=== PATIENT | male | born 1975 | race Caucasian/White ===

== ENCOUNTER 2017-06-20 18:20 | Observation (INO) ==
[2017-06-20] MEDS ORDERED: Ipratropium/Albuterol Neb 3 ML IH ONE (18:27)
[2017-06-20] MEDS ORDERED: predniSONE 20 MG TABLET PO ONE (18:27)
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
[2017-06-20 19:00] LABS: Basophils # 0.1 K/mcL (0.0-0.2); Basophils % 0.8 %; Eosinophils # 0.1 K/mcL (0.0-0.6); Eosinophils % 1.4 %; Hematocrit 43.6 % (37.5-50.1); Immature Granulocytes % 0.7 % (0-4); Lymphocytes # 2.5 K/mcL (0.6-4.6); Mean Corpuscular HGB Conc 34.4 g/dL (31.6-35.5); Mean Corpuscular Hemoglobin 32.3 pg (28.0-33.3); Mean Corpuscular Volume 93.8 fL (83.0-100.0); Monocytes # 0.7 K/mcL (0.0-1.3); Monocytes % 7.6 %; Platelet Count 213 K/mcL (140-400); Red Blood Count 4.65 M/mcL (4.19-5.50); Red Cell Distribution Width 12.5 % (11.5-14.5); Segmented Neutrophils % 63.5 %
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
[2017-06-20 19:06] LABS: INR 1.1
[2017-06-20 19:34] LABS: BUN/Creatinine Ratio 15 (6-26); Blood Urea Nitrogen 15 mg/dL (6-20); Calcium 9.3 mg/dL (8.6-10.3); Carbon Dioxide 25 mEq/L (23-29); Chloride 104 mEq/L (98-107); Glucose 141 mg/dL (70-105); Osmolality,Calculated 287 (280-300); Sodium 137 mEq/L (136-145); eGFR For African Americans > 60 (> 60); eGFR For Non-African Americans > 60 (> 60)
[2017-06-20] MEDS ORDERED: Acetaminophen 325 MG TABLET PO PRN (20:32)
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
[2017-06-20] MEDS: Ipratropium/Albuterol Neb 3 ML IH SCH (21:39)
[2017-06-20] MEDS: cefTRIAXone 1,000 MG in Water for inj. (sterile) 20 ML 10 ML IVPB SCH (22:06)
[2017-06-20] MEDS: Gabapentin 300 MG CAPSULE PO SCH (22:07)
[2017-06-20] MEDS: BuPROPion SR (12 HR) 150 MG TABLET PO SCH (22:07)
[2017-06-20] MEDS: MethylPREDNISolone 40 MG/ML VIAL IVP SCH (22:07)
[2017-06-20] MEDS: 0.9 % Sodium Chloride 1,000 ML IVC SCH (22:07)
[2017-06-20] MEDS: *HR* Enoxaparin 40 MG/0.4 ML SYRINGE SQ SCH (22:07)
[2017-06-20] MEDS: Magic Mouthwash 10 ML UD Cup PO PRN (23:45)
[2017-06-21 01:29] LABS: Hemoglobin A1C 5.3 %
[2017-06-21] MEDS: Ipratropium/Albuterol Neb 3 ML IH SCH ×2 (04:23→10:46)
[2017-06-21] MEDS: *HR* Enoxaparin 40 MG/0.4 ML SYRINGE SQ SCH (05:33)
[2017-06-21] MEDS: MethylPREDNISolone 40 MG/ML VIAL IVP SCH ×2 (05:33→11:46)
[2017-06-21] MEDS: Gabapentin 300 MG CAPSULE PO SCH ×3 (09:22→20:06)
[2017-06-21] MEDS: BuPROPion SR (12 HR) 150 MG TABLET PO SCH ×2 (09:22→20:06)
[2017-06-21] MEDS: 0.9 % Sodium Chloride 1,000 ML IVC SCH ×2 (09:22→23:12)
[2017-06-21] MEDS: Magic Mouthwash 10 ML UD Cup PO PRN (13:11)
[2017-06-21 14:07] LABS: Adenovirus Not Detected (Not Detect); Bordetella Pertussis Not Detected (Not Detect); Chlamydophila pneumoniae Not Detected (Not Detect); Coronavirus 229E Not Detected (Not Detect); Coronavirus HKU1 Not Detected (Not Detect); Coronavirus NL63 Not Detected (Not Detect); Coronavirus OC43 Not Detected (Not Detect); Human Metapneumovirus Not Detected (Not Detect); Human Rhinovirus/Enterovirus Not Detected (Not Detect); Influenza A Subtype 2009 H1 Not Detected (Not Detect); Influenza A Untypeable Not Detected (Not Detect); Influenza B Not Detected (Not Detect); Mycoplasma pneumoniae Not Detected (Not Detect); Parainfluenza Virus 1 Not Detected (Not Detect); Parainfluenza Virus 2 Not Detected (Not Detect); Parainfluenza Virus 3 Not Detected (Not Detect); Parainfluenza Virus 4 Not Detected (Not Detect); Respiratory Syncytial Virus Not Detected (Not Detect)
[2017-06-21] MEDS ORDERED: Famotidine 20 MG TABLET PO SCH (14:45)
--- NOTE | 2017-06-21 15:36 | Discharge Summary ---
Date of Encounter: 06/21/17 Time of Encounter: 15:30 - Discharge Diagnosis (1) GERD (gastroesophageal reflux disease) Status: Acute Comments: Patient states he feels like he is on fire from his stomach to his mouth, he denies any cough or shortness of breath at this time. He states he has episodes that he is so short of breath that he cannot walk from the bathroom to the bed and other times that he can walk without any difficulty. He is on Pepcid 40 twice a day andzantac 150 mg daily and will continue same on discharge Will add carafate to home regime Arrange Close GI f/u Patient will likely need an EGD with the symptoms of uncontrolled GERD on maximum pharmacokinetics Qualifiers: Esophagitis presence: without esophagitis Qualified Code(s): K21.9 - Gastro -esophageal reflux disease without esophagitis (2) COPD exacerbation Status: Acute Comments: Start Azithromycin & Solumedrol BRENDA duonebs and PRN albuterol nebs; continuous O2 via NC Consider BiPAP per need; patient stable at this time (3) Depression Status: Acute Qualifiers: Depression Type: major depressive disorder Major depression recurrence: recurrent Active/Remission status: remission status unspecified Qualified Code(s): F33.9 - Major depressive disorder, recurrent, unspecified (4) Hypertension Status: Acute Qualifiers: Hypertension type: essential hypertension Qualified Code(s): I10 - Essential (primary) hypertension (5) Shortness of breath Status: Acute - Discharge Medications Home Medications: Acetaminophen [Tylenol] 325 mg PO Q6HR PRN 09/10/16 [History] BuPROPion SR (12 HR) [Wellbutrin SR] 150 mg PO BID 09/10/16 [History] Dicyclomine [Bentyl] 10 mg PO QID 09/10/16 [History] DiphenhydraMINE [Benadryl] 25 mg PO Q6H PRN 09/10/16 [History] Escitalopram [Lexapro] 10 mg PO DAILY 09/10/16 [History] Gabapentin [Neurontin] 300 mg PO TID 09/10/16 [History] Lisinopril 2.5 mg PO DAILY 09/10/16 [History] Loperamide HCl [Anti-Diarrheal] 2 mg PO QID PRN 09/10/16 [History] Meloxicam 15 mg PO DAILY 09/10/16 [History] Omeprazole [PriLOSEC] 40 mg PO DAILY 09/10/16 [History] Ranitidine HCl [Zantac] 150 mg PO BID 09/10/16 [History] Tizanidine HCl [Zanaflex] 4 mg PO TID 09/10/16 [History] Allergies/Adverse Reactions: 3 Allergy/AdvReac Type Severity Reaction Status Date / Time Erythromycin Base Allergy Hives Verified 06/20/17 18:22 ibuprofen Allergy Itching Verified 06/20/17 18:22 Influenza Virus Vaccines Allergy Hives Verified 06/20/17 18:22 nicotine [From Nicoderm CQ] Allergy Hives Verified 06/20/17 18:22 pantoprazole [From Protonix] Allergy Itching Verified 06/20/17 18:22 Procedures/tests Complete & Pending: Procedures Performed prior 72 hours Category Date Time Status CT angio chest [CT] Stat Cat Scan 06/20/17 20:31 Completed Date of admission: 06/20/17 20:12 Primary care physician: PCP NONE Discharging clinician: Teressa Mace Anticipated date of discharge: 06/21/17 - Patient Status Condition: Good - Discharge Instructions Follow Up With: Tanmay Cooney MD [Partnered Physician] - 06/22/17 2:30 pm Hospital course: Mr. Teague is a 41 year old male - Time Spent with Patient Total time spent providing and/or coordinating discharge services: - Constitutional Vitals: Temp Pulse Resp BP Pulse Ox 97.9 F 124 17 103/64 95 06/21/17 12:27 06/21/17 12:27 06/21/17 12:27 06/21/17 12:27 06/21/17 12:27 General appearance: Present: A&O X 3
[2017-06-21] MEDS ORDERED: Levalbuterol Neb 0.63 MG/3 ML IH PRN (17:49)
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
[2017-06-21] MEDS: cefTRIAXone 1,000 MG in Water for inj. (sterile) 20 ML 10 ML IVPB SCH (20:06)
[2017-06-21] MEDS: Famotidine 20 MG TABLET PO SCH (20:06)
[2017-06-21] MEDS ORDERED: Lactulose Oral Soln 20 GM/30 ML UDC PO SCH (21:00)
[2017-06-21] MEDS: Sucralfate 1 GM TABLET PO SCH (21:10)
[2017-06-22 05:42] LABS: Basophils % 0.2 %; Hematocrit 39.3 % (37.5-50.1); Immature Granulocytes % 1.4 % (0-4); Lymphocytes % 9.3 %; Mean Corpuscular HGB Conc 32.6 g/dL (31.6-35.5); Mean Corpuscular Hemoglobin 31.4 pg (28.0-33.3); Mean Corpuscular Volume 96.3 fL (83.0-100.0); Monocytes # 1.5 K/mcL (0.0-1.3); Monocytes % 7.7 %; Platelet Count 190 K/mcL (140-400); Red Blood Count 4.08 M/mcL (4.19-5.50); Red Cell Distribution Width 13.2 % (11.5-14.5); Segmented Neutrophils % 81.4 %
[2017-06-22 05:45] LABS: Hemoglobin 12.8 g/dL (12.9-16.9); Lymphocytes # 1.8 K/mcL (0.6-4.6); Neutrophils # 16.1 K/mcL (1.6-8.9)
[2017-06-22 05:51] LABS: BUN/Creatinine Ratio 17 (6-26); Blood Urea Nitrogen 16 mg/dL (6-20); Carbon Dioxide 25 mEq/L (23-29); Chloride 107 mEq/L (98-107); Glucose 119 mg/dL (70-105); Osmolality,Calculated 288 (280-300); Potassium 4.3 mEq/L (3.5-5.1); Sodium 138 mEq/L (136-145); eGFR For African Americans > 60 (> 60); eGFR For Non-African Americans > 60 (> 60)
[2017-06-22] MEDS: *HR* Enoxaparin 40 MG/0.4 ML SYRINGE SQ SCH (06:28)
[2017-06-22] MEDS: Sucralfate 1 GM TABLET PO SCH ×4 (11:12→22:14)
[2017-06-22] MEDS: Famotidine 20 MG TABLET PO SCH ×2 (11:13→22:14)
[2017-06-22] MEDS: Gabapentin 300 MG CAPSULE PO SCH ×3 (11:13→22:14)
[2017-06-22] MEDS: BuPROPion SR (12 HR) 150 MG TABLET PO SCH ×2 (11:13→22:14)
[2017-06-22] MEDS: 0.9 % Sodium Chloride 1,000 ML IVC SCH (11:31)
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
[2017-06-22] MEDS ORDERED: *HR* Propofol 200 MG/20 ML VIAL IVP ONE ×2 (13:23→13:45)
--- NOTE | 2017-06-22 14:20 | Anesthesia Evaluation PreOp ---
Date of Encounter: 06/22/17 Time of Encounter: 14:18 - Past History Planned Operation: EGD Cardiac History: HTN Pulmonary History: Denies Any Significant HX TRAIN EXAMINER History: Denies Any Significant HX Other Medical History: Denies Any Significant HX Anesthesia History: No Prior Anesthetic Complications, Past Anesthesia (foot sx) Alcohol Use: none Drug use: none Medications and Allergies Acetaminophen [Tylenol] 325 mg PO Q6HR PRN 09/10/16 [History] BuPROPion SR (12 HR) [Wellbutrin SR] 150 mg PO BID 09/10/16 [History] Dicyclomine [Bentyl] 10 mg PO QID 09/10/16 [History] DiphenhydraMINE [Benadryl] 25 mg PO Q6H PRN 09/10/16 [History] Escitalopram [Lexapro] 10 mg PO DAILY 09/10/16 [History] Gabapentin [Neurontin] 300 mg PO TID 09/10/16 [History] Lisinopril 2.5 mg PO DAILY 09/10/16 [History] Loperamide HCl [Anti-Diarrheal] 2 mg PO QID PRN 09/10/16 [History] Meloxicam 15 mg PO DAILY 09/10/16 [History] Omeprazole [PriLOSEC] 40 mg PO DAILY 09/10/16 [History] Ranitidine HCl [Zantac] 150 mg PO BID 09/10/16 [History] Tizanidine HCl [Zanaflex] 4 mg PO TID 09/10/16 [History] 3 Allergy/AdvReac Type Severity Reaction Status Date / Time Erythromycin Base Allergy Hives Verified 06/20/17 18:22 ibuprofen Allergy Itching Verified 06/20/17 18:22 Influenza Virus Vaccines Allergy Hives Verified 06/20/17 18:22 nicotine [From Nicoderm CQ] Allergy Hives Verified 06/20/17 18:22 pantoprazole [From Protonix] Allergy Itching Verified 06/20/17 18:22 - Meds/Allergy Pre-op Review Medications Reviewed: Yes Allergies Reviewed: Yes Beta Blockers on Current Med List: No Anesthesia Results - Labs 06/22/17 05:15 06/22/17 05:15 Anesthesia Exam Selected Entries 06/22/17 13:00 Temperature 98.2 F Pulse Rate 76 Respiratory Rate 16 Blood Pressure 128/94 O2 Sat by Pulse Oximetry 97 Weight: 86kg - HEENT Pupil (Motor): EOMI Mallampati: II Teeth: Normal Oral Opening: Greater than 3 - TRAIN EXAMINER LOC: Oriented TRAIN EXAMINER Motor: Normal RUE, Normal LUE, Normal RLE, Normal LLE, Normal Face TRAIN EXAMINER Sensory: Normal: RUE, LUE, RLE, LLE, Face - Cardiac Rhythm: Regular Murmur: None - Pulmonary Breath Sounds: bilateral Clear Respiratory Effort: Symmetrical Anesthesia Assess/Plan ASA Score: 2 Modified Gelacio Scale for Level of Consciousness: Cooperative, oriented, and tranquil Anesthetic Plan: MAC Monitoring Plan: Standard Monitors Recovery Plan: Other (agrees to MAC)
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
--- NOTE | 2017-06-22 19:24 | Electrocardiograph Report ---
[address] [id number] Test Date: 2017-06-20 Pat Name: Mark Teague Department: 104 Room: 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
[2017-06-22] MEDS: cefTRIAXone 1,000 MG in Water for inj. (sterile) 20 ML 10 ML IVPB SCH (22:14)
[2017-06-22] MEDS: Magic Mouthwash 10 ML UD Cup PO PRN (22:16)
[2017-06-23] MEDS: 0.9 % Sodium Chloride 1,000 ML IVC SCH (02:00)
[2017-06-23] MEDS: *HR* Enoxaparin 40 MG/0.4 ML SYRINGE SQ SCH (06:20)
[2017-06-23] MEDS: Famotidine 20 MG TABLET PO SCH (08:05)
[2017-06-23] MEDS: BuPROPion SR (12 HR) 150 MG TABLET PO SCH (08:05)
[2017-06-23] MEDS: Gabapentin 300 MG CAPSULE PO SCH ×2 (08:05→15:56)
[2017-06-23] MEDS: Sucralfate 1 GM TABLET PO SCH ×3 (08:06→15:56)
[2017-06-23 08:51] LABS: Basophils # 0.1 K/mcL (0.0-0.2); Basophils % 0.7 %; Eosinophils # 0.1 K/mcL (0.0-0.6); Eosinophils % 0.8 %; Hematocrit 43.4 % (37.5-50.1); Hemoglobin 14.2 g/dL (12.9-16.9); Immature Granulocytes % 1.9 % (0-4); Lymphocytes # 2.9 K/mcL (0.6-4.6); Lymphocytes % 28.6 %; Mean Corpuscular HGB Conc 32.7 g/dL (31.6-35.5); Mean Corpuscular Volume 97.7 fL (83.0-100.0); Mean Platelet Volume 9.9 fL (9.4-12.4); Monocytes # 0.6 K/mcL (0.0-1.3); Monocytes % 6.1 %; Neutrophils # 6.4 K/mcL (1.6-8.9); Platelet Count 200 K/mcL (140-400); Red Blood Count 4.44 M/mcL (4.19-5.50); Red Cell Distribution Width 12.9 % (11.5-14.5); Segmented Neutrophils % 61.9 %
[2017-06-23 15:57] VITALS: BP 131/81
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
== END 2017-06-23 17:55 | disposition home or self-care (01) ==
LOC: EMEROO 18:20 → 3BNU 18:20
PROVIDERS: ADMIT Internal Medicine; ATTEND Registered Nurse
PROC: ENDOEBX (2017-06-22 13:27)